=== PATIENT | male | born 1975 | race Caucasian/White ===

== ENCOUNTER 2019-04-17 07:21 | Emergency (ER) | payer BC ==
[~2019-04-17] VITALS: Ht 165.1 cm; Wt 89.4 kg
[~2019-04-17 07:21] MED LIST: GLU5 PO; HUMULIN R100 U/1 M1 SC; LEVEMIR100 U/M1 SQ; METFORMIN HCL1000 MG PO; SUBOXONE1 FI1; ZESTRIL20 MG PO
[2019-04-17 07:46] VITALS: Ht 165.1 cm; Wt 89.4 kg
[2019-04-17 09:17] LABS: BASOPHIL % 0.3 % (0-2); PLATELET COUNT 240 x10^3mcL (130-400); RED CELL DISTRIBUTION WIDTH 12.8 % (11.5-14.5)
[2019-04-17 09:45] LABS: CALCIUM 9.5 mg/dL (8.5-10.1); CARBON DIOXIDE 27.5 mmol/L (21-32); CHLORIDE SERUM 101 mmol/L (98-107); GFR1 > 60 mL/min; GLUCOSE SERUM 277 mg/dL (74-106); POTASSIUM SERUM 4.1 mmol/L (3.5-5.1); SODIUM SERUM 137 mmol/L (136-145)
[2019-04-17 09:49] LABS: ALKALINE PHOSPHATASE 68 U/L (46-116); ALT/SGPT 40 U/L (16-63); AST/SGOT 8 U/L (15-37); BILIRUBIN TOTAL 0.63 mg/dL (0.20-1.00); LIPASE 214 IU/L (73-393); TOTAL PROTEIN, SERUM 8.3 g/dL (6.4-8.2)
[2019-04-17 10:26] LABS: microscopic required? NO
[2019-04-17 10:41] LABS: urine erythrocyte NEGATIVE (NEGATIVE)
[2019-04-17 11:13] VITALS: BP 139/88
== END 2019-04-17 11:13 | disposition home or self-care (01) ==
LOC: ED 07:21
PROVIDERS: Emergency Medicine
DX: K57.32 Diverticulitis of large intestine without perforation or abscess without bleeding (principal); E11.65 Type 2 diabetes mellitus with hyperglycemia; I10 Essential (primary) hypertension
CPT/HCPCS: 36415; J2405